=== PATIENT | female | born 1970 | race Asian ===

== ENCOUNTER 2018-08-14 12:21 | Emergency (ER) | payer MEDICARE, MEDICAID ==
[~2018-08-14] VITALS: Ht 144.8 cm; Wt 63.6 kg
[2018-08-14] MEDS ORDERED: LORazepam 1 MG tablet PO ONE (12:25)
[2018-08-14 13:49] VITALS: BP 137/82
== END 2018-08-14 13:50 | disposition home or self-care (01) ==
LOC: ER 12:21
DX: F41.9 Anxiety disorder, unspecified (principal); E78.00 Pure hypercholesterolemia, unspecified; I10 Essential (primary) hypertension; F12.90 Cannabis use, unspecified, uncomplicated; Z88.0 Allergy status to penicillin
CPT/HCPCS: 71045; 93005; 99283

== ENCOUNTER 2021-05-31 16:41 | Emergency (ER) | payer MEDICARE, MEDICAID, OTHER ==
[~2021-05-31] VITALS: Ht 144.8 cm; Wt 63.6 kg
[2021-05-31 17:33] VITALS: BP 153/92
[2021-05-31] MEDS ORDERED: IBUP-1984 PO (17:44)
== END 2021-05-31 18:32 | disposition home or self-care (01) ==
LOC: ER 16:44
DX: S20.212A Contusion of left front wall of thorax, initial encounter (principal); R07.89 Other chest pain; E78.00 Pure hypercholesterolemia, unspecified; I10 Essential (primary) hypertension; Z88.0 Allergy status to penicillin; Z79.899 Other long term (current) drug therapy; V49.9XXA Car occupant (driver) (passenger) injured in unspecified traffic accident, initial encounter; Y93.89 Activity, other specified; Y92.89 Other specified places as the place of occurrence of the external cause; Y99.8 Other external cause status
CPT/HCPCS: 99283

== ENCOUNTER → 2024-01-17 | Outpatient (CLI) | payer MEDICARE, MEDICAID | END | disposition home or self-care (01) | LOC: RAD 13:19 | PROVIDERS: ATTEND Student in an Organized Health Care Education/Training Program | DX: M79.622 Pain in left upper arm (principal) | CPT/HCPCS: 71101; 73030 ==

== ENCOUNTER 2025-05-14 20:07 | Emergency (ER) | payer MEDICARE, MEDICAID ==
[~2025-05-14] VITALS: Ht 144.8 cm; Wt 69.7 kg
[2025-05-14 20:47] LABS: MEAN PLATELET VOLUME 8.1 FL (7.4-10.4); RED CELL DISTRIBUTION WIDTH 12.7 % (11.5-14.5)
[2025-05-14 20:53] LABS: CREATININE 0.91 MG/DL (0.40-0.90); TOTAL CARBON DIOXIDE 26.8 MMOL/L (24-32); eCRCL 44 ML/MIN; eGFR 65 ML/MIN
--- NOTE | 2025-05-14 21:12 | Physician Documentation ---
History of Present Illness General Chief Complaint: Urinary Symptoms Stated Complaint: BACK PAIN Time Seen by MD: 21:12 Primary Medical Doctor: John History of Present Illness Initial Comments The patient is a 54-year-old female presents to the emergency department with left flank pain over the last several days and urinary symptoms. The patient states she has 8/10 left flank pain which has been gradually worsened over the last two days. The patient states she has frequency urgency but denies any dysuria or vaginal discharge. Patient's symptoms are moderate and persistent. Patient denies any nausea vomiting or diarrhea. The patient has had one episode of kidney stones two years ago. Medication Reconciliation Allergies: Coded Allergies: Penicillins (Verified Allergy, Unknown, 05/14/25) Scheduled Tamsulosin Hcl* (Flomax*), 0.4 MG PO DAILY Scheduled PRN Hydrocodone Bit/Acetaminophen (Hydrocodone-Apap 10-325 Tablet), 1 TABLET PO Q6H PRN for pain ONDANSETRON ODT 4mg tablet (Ondansetron Odt), 1 TABLET PO Q6H PRN for nausea/vomiting Past Medical History Past Medical History: High Cholesterol, Hypertension Past Surgical History: no surgical history Smoking: Non-Smoker Alcohol Use: None Drug Use: none Lives with: Family Lives In: Home Review of Systems All Other Systems at this time: Reviewed and Negative Physical Exam Physical Exam Vital Signs: Temperature: 98.0, Source: Oral, Heart Rate: 85, Respiratory Rate: 16, BP: 169/113, Pulse Oximetry: 98, Weight: 69.700 Oxygen Flow Rate: 0 Physical Exam VITALS: Reviewed and as above. GENERAL: Alert, no apparent distress. HEENT: Normocephalic, atraumatic, PERRL, EOMI, dry mucosa, no erythema RESPIRATORY: Lungs clear, normal breath sounds, no respiratory distress. CHEST: No accessory muscle use, no retractions CV: Regular rate, rhythm, no edema, no murmur, No: JVD GI: Soft, non-tender, bowels sounds present, no rebound, guarding, or rigidity BACK: Left CVA tenderness, or swelling MUSCULOSKELETAL: No deformities, no edema SKIN: Warm and dry, no rash NEURO: Oriented x4, No motor or sensory deficit PSYCH: Normal mood and affect, no agitation Progress Results/Orders Results/Orders Orders - OHLKATHY YARBROUGH MD Ct Abdomen Pelvis (05/14/25 22:20) Completed Orders - KATHY DYER MD Urinalysis, Cult If Indicated (05/14/25 20:20) Hcg, Ur Ql (05/14/25 20:20) Cbc/Diff (05/14/25 20:20) BMP (05/14/25 20:20) Lipase (05/14/25 20:20) CMP (05/14/25 20:20) Ketorolac Trometh 15mg/Ml Vial (Toradol (05/14/25 21:20) Normal Saline 1000ml (0.9% Sodium Chlori (05/14/25 21:20) Ct Abdomen Pelvis (05/14/25 22:20) Vital Signs 05/14/25 05/14/25 05/14/25 05/14/25 20:10 21:13 21:56 22:15 Temp 98.0 Pulse 85 81 Resp 16 16 16 16 B/P (MAP) 169/113 144/89 (107) Pulse Ox 98 95 O2 Flow Rate 0 0 05/14/25 05/14/25 05/14/25 22:39 22:41 23:19 Temp 98.0 Pulse 84 77 Resp 16 16 18 B/P (MAP) 156/103 (120) 141/93 Pulse Ox 96 97 O2 Flow Rate 0 Laboratory Tests Test 05/14/25 20:15 05/14/25 20:29 Urine Specimen Description Cln catch midstream Urine Color Yellow Urine Clarity Clear Urine pH 7.5 Urine Specific Jones 1.015 Urine Protein Negative Urine Glucose (UA) Negative Urine Ketones Negative Urine Occult Blood Negative Urine Nitrite Negative Urine Bilirubin Negative Urine Urobilinogen 0.2 Urine Leukocyte Esterase Negative Urine Culture Indicated Not ind Volume Urine Centrifuged 10 ml Urine HCG, Qualitative Negative Urine Comment White Blood Count 14.0 H Red Blood Count 4.85 Hemoglobin 15.0 Hematocrit 43.1 Mean Corpuscular Volume 88.8 Mean Corpuscular Hemoglobin 30.9 Mean Corpuscular Hemoglobin Concent 34.8 Red Cell Distribution Width 12.7 Platelet Count 244 Mean Platelet Volume 8.1 Neutrophils (%) (Auto) 70.7 Lymphocytes (%) (Auto) 20.6 L Monocytes (%) (Auto) 6.9 Eosinophils (%) (Auto) 1.5 Basophils (%) (Auto) 0.3 Neutrophils # (Auto) 9.9 H Lymphocytes # (Auto) 2.9 Monocytes # (Auto) 1.0 H Eosinophils # (Auto) 0.2 Basophils # (Auto) 0.0 CBC Comment Sodium Level 141 Potassium Level 4.1 Chloride Level 104 Carbon Dioxide Level 26.8 Anion Gap 10 Blood Urea Nitrogen 12 Creatinine 0.91 H Estimated GFR/1.73 m2 65 BUN/Creatinine Ratio 13.2 Glucose Level 108 H Calcium Level 9.8 Total Bilirubin 1.5 H Aspartate Amino Transf (AST/SGOT) 32 Alanine Aminotransferase (ALT/SGPT) 44 Alkaline Phosphatase 135 H Total Protein 8.2 Albumin 4.1 Globulin 4.1 Albumin/Globulin Ratio 1.0 L Lipase 49 Chemistry Comments EKG/XRAY/CT/US/VASC/MRI CT : [facility] [address] [facility] [address] CAT SCAN Patient: CELESTINO ACKERMAN Medical Record: [id number] [facility] 1970, Age: 54 Sex: Female Location: ER Patient Status: [facility] ER Service Date/Time: 05/14/252219 Ordering Physician: KATHY DYER MD Exam: CT ABDOMEN PELVIS Exam: CT CT ABDOMEN PELVIS History: abdominal pain Comparison Study: None Technique: Multidetector spiral CT of the abdomen was performed from lung bases to pubic symphysis. Imaging was performed without IV contrast. Axial, coronal and sagittal multiplanar reformats were obtained from the axial data set by the technologist. Radiation Dose : 1. Abdomen/Pelvis: CTDIvol 20.68 mGy, DLP 882.97 mGy*cm. Findings: Evaluation of solid organs is limited due to lack of intravenous contrast use. Lung Bases: No acute or significant lung base finding. Normal heart size. No pleural or pericardial effusion. Liver: The liver is normal in size. Hepatic steatosis. No focal lesions. Gallbladder and Biliary Tree: Unremarkable Spleen: Unremarkable Pancreas: The pancreas is grossly normal in appearance. Adrenal Glands: Unremarkable Kidneys: Moderate left hydronephrosis secondary to a partially obstructing 8 mm proximal ureterolith located just distal to the level of the ureteropelvic junction. Additional nonobstructive calcific debris within the left inferior pole. No evidence of right hydronephrosis or nephrolithiasis. Bladder: Grossly unremarkable for degree of distention. Bowel: The stomach is grossly normal in appearance. Small bowel and colon are normal in caliber and distribution. The appendix is not visualized; however, no secondary findings of acute appendicitis identified. Ascites: Absent Lymphadenopathy: No mesenteric, retroperitoneal or periportal lymphadenopathy. Abdominal Wall and Mesentery: Unremarkable. Vasculature: The visualized abdominal aorta is normal in size and caliber. Evaluation of abdominal and pelvic vessels is limited due to lack of intravenous contrast. Pelvic Organs: Unremarkable status post hysterectomy. Musculoskeletal: No aggressive focal bony lesions, acute fractures or dislocation. IMPRESSION: 1. Moderate left hydronephrosis secondary to a partially obstructing 8 mm proximal ureterolith located just distal to the level of the ureteropelvic junction. 2. Hepatic steatosis. Radiation optimization: All CT scans at this facility use at least one of these dose optimization techniques: automated exposure control mA and/or kV adjustment per patient size (includes targeted exams where dose is matched to clinical indication) or iterative reconstruction. Electronically Signed by:NATO ROBERTS MD Date & Time: 05/14/252251 Dictated by: NATO ROBERTS MD Dictation date and time: 05/14/252251 Primary Care Provider: NO PRIMARY CARE PROVIDER cc: KATHY DYER MD ~ Medical Decision Making Findings The patient is a 54-year-old female with abdominal pain for last several days patient has a history of kidney stones in the past, patient had hematuria without evidence of infection on her labs, the patient has a CT scan which demonstrated a kidney stone. Patient has been comfortable here in the emergency room with pain medication, she is able to tolerate oral fluids. The patient will be discharged with instructions to use ibuprofen for mild pain she will be given a prescription for Friendly Flomax and Zofran. Patient will will be advised to follow up as an outpatient. Her CT imaging was reviewed her prior hospit alizations were reviewed. The patient's pulse oximetry was interpreted as normal and adequate and her shelter monitor was interpreted as a sinus rhythm. Departure Disposition: 01 HOME / SELF CARE / HOMELESS Impression: Primary Impression: Renal colic on left side Discharge Instructions: Kidney Stones Additional Instructions: Ibuprofen for mild pain he can use 600 mg every 6 hours. Add the pain medication Friendly for more severe pain. Return if he developed fevers chills or worsening of your symptoms. Follow up with your healthcare provider and if the pain does not resolve in a week he should follow up with Urology the phone [place] [facility] is on this paperwork for Dr. Longo. Referrals: NO PRIMARY CARE PROVIDER (PCP) KRISTI LONGO MD Prescriptions ONDANSETRON ODT 4mg tablet (ONDANSETRON ODT) 4 Mg Tab.rapdis 1 TABLET PO Q6H PRN for nausea/vomiting, #12 TABLET Prov: KATHY DYER MD 05/14/25 Hydrocodone Bit/Acetaminophen (Hydrocodone-Apap 10-325 Tablet) 10mg/325mg Tablet 1 TABLET PO Q6H PRN for pain, #12 TABLET Prov: KATHY DYER MD 05/14/25 Tamsulosin Hcl* (Flomax*) 0.4 Mg Cap.sr.24h 0.4 MG PO DAILY, #10 CAP Prov: KAHTY DYER MD 05/14/25 Signature Scribe Signature: no scribe Attestation: The note accurately reflects work and decisions made by me.Kathy Dyer MD 05/15/25 05:41 KATHY DYER MD May 14, 2025 21:12
[2025-05-14 21:21] LABS: LEUKOCYTE ESTERASE ,URINE NEGATIVE (Neg); NITRITES, URINE NEGATIVE (Neg); OCCULT BLOOD,URINE NEGATIVE (Neg); URINE HCG NEGATIVE (NEG)
[2025-05-14 21:25] LABS: UA COLLECTION TYPE CLN CATCH MIDSTREAM
[2025-05-14] MEDS: normal saline 1000ML IV soln IVB ONE (21:55)
[2025-05-14] MEDS: ketorolac trometh 15mg/ml vial 15 MG/ML ML IV ONE (21:56)
[2025-05-14] MEDS ORDERED: ONDA-243 PO (22:45)
[2025-05-14] MEDS ORDERED: HYDR-3973 PO (22:45)
[2025-05-14] MEDS ORDERED: TAMS-55 PO (22:45)
--- NOTE | 2025-05-14 22:55 | RADIOLOGY REPORT ---
Exam: CT CT ABDOMEN PELVIS History: abdominal pain Comparison Study: None Technique: Multidetector spiral CT of the abdomen was performed from lung bases to pubic symphysis. Imaging was performed without IV contrast. Axial, coronal and sagittal multiplanar reformats were obtained from the axial data set by the technologist. Radiation Dose : 1. Abdomen/Pelvis: CTDIvol 20.68 mGy, DLP 882.97 mGy*cm. Findings: Evaluation of solid organs is limited due to lack of intravenous contrast use. Lung Bases: No acute or significant lung base finding. Normal heart size. No pleural or pericardial effusion. Liver: The liver is normal in size. Hepatic steatosis. No focal lesions. Gallbladder and Biliary Tree: Unremarkable Spleen: Unremarkable Pancreas: The pancreas is grossly normal in appearance. Adrenal Glands: Unremarkable Kidneys: Moderate left hydronephrosis secondary to a partially obstructing 8 mm proximal ureterolith located just distal to the level of the ureteropelvic junction. Additional nonobstructive calcific debris within the left inferior pole. No evidence of right hydronephrosis or nephrolithiasis. Bladder: Grossly unremarkable for degree of distention. Bowel: The stomach is grossly normal in appearance. Small bowel and colon are normal in caliber and distribution. The appendix is not visualized; however, no secondary findings of acute appendicitis identified. Ascites: Absent Lymphadenopathy: No mesenteric, retroperitoneal or periportal lymphadenopathy. Abdominal Wall and Mesentery: Unremarkable. Vasculature: The visualized abdominal aorta is normal in size and caliber. Evaluation of abdominal and pelvic vessels is limited due to lack of intravenous contrast. Pelvic Organs: Unremarkable status post hysterectomy. Musculoskeletal: No aggressive focal bony lesions, acute fractures or dislocation. IMPRESSION: 1. Moderate left hydronephrosis secondary to a partially obstructing 8 mm proximal ureterolith located just distal to the level of the ureteropelvic junction. 2. Hepatic steatosis. Radiation optimization: All CT scans at this facility use at least one of these dose optimization techniques: automated exposure control mA and/or kV adjustment per patient size (includes targeted exams where dose is matched to clinical indication) or iterative reconstruction.
[2025-05-14 23:19] VITALS: BP 141/93; PULSE 77; RESP 18; TEMP 98; O2SAT 97
== END 2025-05-14 23:26 | disposition home or self-care (01) ==
LOC: ER 20:07
DX: N23 Unspecified renal colic (principal); E78.00 Pure hypercholesterolemia, unspecified; I10 Essential (primary) hypertension; Z88.0 Allergy status to penicillin
CPT/HCPCS: 36415; 74176; 80053; 81003; 81025; 83690; 85025; 96361; 96374; 99285; J1885; J7030